=== PATIENT | male | born 1970 ===

== ENCOUNTER 2018-06-12 12:50 | Emergency (ER) | payer OTHER ==
[2018-06-12 13:03] VITALS: O2SAT 99
--- NOTE | 2018-06-12 14:55 | ED PDOC ---
Upper Extremity Pain/Injury Time Seen by Provider: 06/12/18 13:11 Chief Complaint (Nursing): Finger,Hand,&Wrist Chief Complaint (Provider): right thumb pain History Per: Patient History/Exam Limitations: no limitations Onset/Duration Of Symptoms: Days (x1) Current Symptoms Are (Timing): Still Present Additional Complaint(s): Jerry Rasmussen, a 47 year old male, presents to the ED complaining of right thumb pain that began after rock climbing yesterday. Patient states he tried to put pressure on right thumb as he was changing arms and had acute pain. Patient reports going to [facility] for persistent pain and swelling, and he received a right first finger X-ray. Patient states [facility] wrapped the thumb in an melchor bandage and stated he needed advanced care. He states he has not taken any pain medications and does not feel the need. He denies falling, head trauma, general trauma, dizziness, visual changes, and numbness or tingling to the right thumb. PCP: none provided Past Medical History Reviewed: Historical Data, Nursing Documentation, Vital Signs Vital Signs: Last Vital Signs Temp 97.7 F 06/12/18 12:58 Pulse 70 06/12/18 12:58 Resp 18 06/12/18 12:58 BP 113/70 06/12/18 12:58 Pulse Ox 99 06/12/18 12:58 - Family History Family History: States: Unknown Family Hx - Home Medications Home Medications: Ambulatory Orders Medication Instructions Recorded RX: Ibuprofen [Motrin Tab] 600 mg PO Q6H PRN 7 Days tab 06/12/18 - Allergies Allergies/Adverse Reactions: Allergies Allergy/AdvReac Type Severity Reaction Status Date / Time No Known Allergies Allergy Verified 06/12/18 12:58 Review of Systems ROS Statement: Except As Marked, All Systems Reviewed And Found Negative Constitutional: Negative for: Other (head trauma, general trauma) Musculoskeletal: Positive for: Hand Pain (right thumb pain) Neurological: Negative for: Numbness (or tingling to the right thumb), Dizziness (or visual changes) Physical Exam - Reviewed Nursing Documentation Reviewed: Yes Vital Signs Reviewed: Yes - Physical Exam Appears: Negative for: Uncomfortable Cardiovascular/Chest: Positive for: Regular Rate, Rhythm Respiratory: Positive for: Normal Breath Sounds (clear to auscultation bilaterally) Extremity: Positive for: Normal ROM (with flexion, extension, abduction, adduction or right wrist. normal rom right elbow), Tenderness (tender upon palpation of proximal phalanx, tenderness with extension, flexion, abduction of right wrist. right forearm nontender to palpation), Swelling (at proximal and distal interphalangeal joint), Other (ecchymosis to right thumb). Negative for: Deformity - ECG O2 Sat by Pulse Oximetry: 99 (RA) Pulse Ox Interpretation: Normal Medical Decision Making Medical Decision Making: Time: 1356 Initial plan: --[facility] X-ray results reviewed --hand surgeon consult --ibupofen 600 PO 1410 --Spoke with Dr. Gonzalez about x-ray results from [facility] and dictated verbatim. Per Dr. Gonzalez, thumb spica splint and follow up in office. Explained to patient that there was no imminent concern for deterioration of fracture but emphasized importance of f/u given possibly pathologic fracture due to Enchondroma. 1530 --Orthoglass thumb spica splint placed (placement verified by TANJA). Upon provider evaluation patient is medically stable, and requires no further treatment in the ED at this time. Patient will be discharged home. Counseling was provided and all questions were answered regarding diagnosis and need for follow up with Dr. Gonzalez or other hand surgeon. There is agreement to discharge plan. Return if symptoms persist or worsen. Scribe Attestation: Documented by Caden Wilks, acting as a scribe for Jeanette Lemon PA-C Provider Scribe Attestation: All medical record entries made by the Scribe were at my direction and personally dictated by me. I have reviewed the chart and agree that the record accurately reflects my personal performance of the history, physical exam, medical decision making, and the department course for this patient. I have also personally directed, reviewed, and agree with the discharge instructions and disposition. Disposition - Clinical Impression Clinical Impression: Fracture of thumb, closed - Patient ED Disposition Is Patient to be Admitted: No - Disposition Referrals: Herminio Baxter MD [Medical Doctor] - Disposition: Routine/Home Disposition Time: 15:30 Condition: IMPROVED Additional Instructions: F/u with Dr. Baxter or any hand surgeon on Thursday. Ibuprofen for pain and swelling. Maintain splint for the majority of the day, even while sleeping. Prescriptions: RX: Ibuprofen [Motrin Tab] 600 mg PO Q6H PRN 7 Days tab PRN Reason: Pain, Moderate (4-7) Instructions: Finger Fracture (DC) Forms: [facility] [employer] (Portuguese) Print Language: CONGOLESE
[2018-06-12 15:29] VITALS: BP 115/75; PULSE 76; RESP 15; TEMP 98
== END 2018-06-12 15:29 | disposition home or self-care (01) ==
LOC: H.ER 12:50
DX: S62.601A Fracture of unspecified phalanx of left index finger, initial encounter for closed fracture (principal); X50.9XXA Other and unspecified overexertion or strenuous movements or postures, initial encounter; Y92.89 Other specified places as the place of occurrence of the external cause